=== PATIENT | female | born 1960 | race Caucasian/White ===

== ENCOUNTER → 2016-12-26 | Outpatient (CLI) | payer OTHER, BC ==
[~2016-12-26] MED LIST: ASPI81TA28 PO; CHOL1000 PO; CYAN10005 PO; KETO10TA PO; OXYC-57 PO
--- NOTE | 2016-12-26 09:36 | DIAGNOSTIC IMAGING REPORT ---
LEFT UPPER EXT JOINT WITHOUT CLINICAL HISTORY: SHOULDER PAIN pain TECHNIQUE: Multiaxial MRI acquisition COMPARISON STUDY: None FINDINGS: Small joint effusion. Small amount of fluid within the subacromial and subdeltoid regions. Generalized supraspinatus tendinitis with evidence for a small focal full-thickness tear at the anterior leading-edge of the tendon. No evidence for musculotendinous retraction. The infraspinatus and subscapularis tendons are unremarkable. Biceps tendon is intact within the bicipital groove. Moderate degenerative substance change of the glenoid labrum with no well-defined acute labral tear. IMPRESSION: 1. Considerable supraspinatus tendinitis with evidence for a small focal full-thickness tear at its anterior edge. 2. No evidence for musculotendinous retraction. 3. Small joint effusion. 4. Moderate degenerative changes of the articular services the glenohumeral joint. 5. Degenerative substance change of the glenoid labrum with no evidence for a superimposed acute labral tear. The above report was generated using voice recognition software. It may contain grammatical, syntax or spelling errors. Electronically signed by: Lc Colbert M.D. 12/26/2016 9:35 AM Dictated Date/Time: 12/26/2016 9:27 AM
== END | disposition home or self-care (01) ==
LOC: C.MRIBC 08:45
PROVIDERS: ATTEND Orthopaedic Surgery
DX: M25.512 Pain in left shoulder (principal); M75.52 Bursitis of left shoulder; M25.412 Effusion, left shoulder

== ENCOUNTER → 2017-01-30 | Outpatient (CLI) | payer OTHER, BC ==
[2017-01-30 13:17] LABS: BASO % 0.3 %; BASO ABS # 0.02 K/uL (0-0.2); COMPLETE YES; EOS % 4.4 %; HEMATOCRIT 42.2 % (37-47); IG% 0.1 %; LYMPH % 28.1 %; LYMPH ABS # 2.04 K/uL (1.2-3.4); MEAN CELL VOLUME 91.9 fL (80-100); MEAN CORPUSCULAR HGB CONC 31.5 g/dl (32-36); MEAN PLATELET VOLUME 11.4 fL (7.4-10.4); MONO % 10.1 %; PLATELET COUNT 284 K/uL (130-400); RED BLOOD COUNT 4.59 M/uL (4.2-5.4); WHITE BLOOD COUNT 7.25 K/uL (4.8-10.8)
[2017-01-30 14:03] LABS: BLOOD UREA NITROGEN 18 mg/dl (7-18); CREATININE 0.77 mg/dl (0.60-1.20); GLUCOSE 84 mg/dl (70-99)
[2017-01-30 14:04] LABS: BUN/CREATININE RATIO 22.8 (10-20); CALCIUM 8.7 mg/dl (8.5-10.1); CARBON DIOXIDE 31 mmol/L (21-32); CHLORIDE 106 mmol/L (98-107); POTASSIUM 3.9 mmol/L (3.5-5.1); SODIUM 140 mmol/L (136-145)
== END | disposition home or self-care (01) ==
LOC: C.LAB 12:01
PROVIDERS: ATTEND Orthopaedic Surgery
DX: Z01.810 Encounter for preprocedural cardiovascular examination (principal); Z01.812 Encounter for preprocedural laboratory examination; M25.512 Pain in left shoulder; R00.1 Bradycardia, unspecified

== ENCOUNTER → 2017-02-19 | Day surgery (SDC) | payer OTHER, BC ==
[2017-01-27 13:51] VITALS: Ht 172.7 cm; Wt 75.0 kg
[~2017-02-19] VITALS: Ht 172.7 cm; Wt 75.0 kg
[~2017-02-19] MED LIST changes: +ATROPINE SULFATE 0.1 MG/ML 5ML SYR IV PRN; +BUPIVACAINE/EPINEPHRINE 0.25% 1:200,000 30 ML VIAL ONE; +CEFAZOLIN 2000 MG/60 ML D5W IV SCH; +DEXAMETHASONE SOD INJ 4 MG/ML VIAL ONE; +EpHEDrine SULFATE INJ 50 MG/ML AMP IV PRN; +EpINEphrine INJ 1MG/ML AMP 1 MG/ML AMP ONE; +FENTANYL CITRATE INJ 50 MCG/1 ML 2 ML VIAL ONE; +HYDROmorphone INJ 1 MG/ML SYR IV PRN; +LACTATED RINGER'S 1000ML 1,000 ML IV SCH; +LIDOCAINE HCL 1% MPF 2 ML VIAL ONE; +LIDOCAINE HCL 2% 2 ML VIAL (20MG/ML) ONE; +MIDAZOLAM HCL 1 MG/ML 2ML VIAL ONE; +ONDANSETRON INJ 2 MG/ML 2 ML VIAL IV PRN; +ONDANSETRON INJ 2 MG/ML 2 ML VIAL ONE; +OXYCODONE/ACETAMINOPHEN 5-325 TAB PO PRN; +PROMETHAZINE HCL INJ 12.5 MG in SODIUM CHLORIDE 0.9% 50ML 50 ML IV PRN; +PROPOFOL IV EMULSION 10 MG/ML 20 ML VIAL IV ONE; +ROPIVACAINE 0.5% 5 MG/ML 30 ML VIAL ONE; +SODIUM CHLORIDE 0.9% 1000ML 1,000 ML IV SCH
--- NOTE | 2017-02-19 09:55 | History & Physical Bridge Note ---
H&P Re-Evaluation Bridge Note: I have examined the patient, reviewed the History & Physical and in the interval since the performance of the History & Physical I have noted the following changes of clinical significance: No changes noted
--- NOTE | 2017-02-19 13:11 | Discharge Instructions-SurgCtr ---
Discharge Instructions Date of Service Feb 19, 2017. Visit Reason for Visit: Left Shoulder Full Thickness Rotator Cuff Tear Discharge Discharge Diagnosis / Problem: SAME ABOVE Discharge Goals Goal(s): Decrease discomfort, Improve function Activity Recommendations Activity Limitations: as noted below Lifting Limitations: until after follow-up appointment Exercise/Sports Limitations: until after follow-up appointment Shower/Bathe: tomorrow Anesthesia . Post Anesthesia Instructions: If you have had General Anesthesia or IV Sedation: * Do not drive today. * Resume driving when surgeon permits. * Do not make important decisions or sign legal documents today. * Call surgeon for: 1. Temperature elevations greater than 101 degrees F. 2. Uncontrollable pain. 3. Excessive bleeding. 4. Persistent nausea and vomiting. 5. Medication intolerance (nausea, vomiting or rash). * For nausea and vomiting use only clear liquids such as: tea, soda, bouillon until nausea subsides, then gradually increase diet as tolerated. * If you have any concerns or questions, call your surgeon's office. If physician is unavailable and it is an emergency, call 911 or go to the nearest emergency room. . Instructions / Follow-Up Instructions / Follow-Up MEDICATIONS: * Resume previous medications unless instructed otherwise by your surgeon. * Always take pain medication on a full stomach or with food to avoid upset stomach. * Do not drink alcohol or drive while taking narcotics. * Ibuprofen or Tylenol may be taken if narcotic not needed. SPECIAL CARE INSTRUCTIONS: __ None _X_ Keep extremity elevated and iced x 48 hours; apply ice 20-30 minutes 8-10 times/day. May remove at night. _X_ Sling (MAY REMOVE AFTER 48 HOURS ONLY TO SHOWER AND FOR THERAPY) _X_24 hrs/day __ Remove at night __ Shoulder Immobilizer __ 24 hrs/day __ Remove at night _X_ Dressing __ Maintain until seen in office, may shower with plastic over site _X_ Remove dressings in 24-48 hours and then may shower _X_ Cover incisions with band-aids after showering __ Do not remove steri-strips Call physician if chills or temperature rises above 102 degrees or pain unrelieved by prescribed pain medications at . . Diet Recommendations Home Diet: no limitations Fluid Restriction: None Procedures Procedures Performed: Left Shoulder Arthroscopy, Small Rotator Cuff Repair, Extensive Debridement, Acromioplasty Pending Studies Studies pending at discharge: no Work Instructions Return To Work: after follow-up Lifting Limitations: NO LIFTING WITH LEFT ARM Medical Emergencies . Who to Call and When: Medical Emergencies: If at any time you feel your situation is an emergency, please call 911 immediately. . Non-Emergent Contact Non-Emergency issues call your: Primary Care Provider Call Non-Emergent contact if: you have a fever, temperature is above 101.5 . . "Provider Documentation" section prepared by Yaya Olson. .
--- NOTE | 2017-02-19 13:16 | [facility] Post Operative Brief Note ---
Immediate Operative Summary Operative Date Feb 19, 2017. Pre-Operative Diagnosis Left Shoulder Full Thickness Rotator Cuff Repair Post-Operative Diagnosis Same Procedure(s) Performed Left Shoulder Arthroscopy, Small Rotator Cuff Repair, Extensive Debridement, Acromioplasty Surgeon Dr. Marianne Whaley Furnace Repair Mechanic Surgeon(s) Radha Olson PA-C Estimated Blood Loss 5 cc Findings as above Specimens None Complication(s) None Disposition Recovery Room / PACU
[2017-02-19] MEDS: FENTANYL CITRATE INJ 50 MCG/1 ML 2 ML VIAL IV PRN ×3 (13:17→13:29)
--- NOTE | 2017-02-19 13:29 | OPERATIVE REPORT ---
DATE OF OPERATION: 02/19/2017 PREOPERATIVE DIAGNOSIS: Severe external impingement with bursal sided rotator cuff tear. 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 PROCEDURE: Left shoulder diagnostic arthroscopy with extensive debridement including chondroplasty, acromioplasty and small rotator cuff repair. SURGEON: Dr. Heraclio Whaley. REHANGER: Johny Olson PA-C, whose assistance was necessary for positioning the arm and helping with instrumentation. ANESTHESIA: General with left interscalene nerve block. COMPLICATIONS: None. CONDITION: Stable to PACU. INDICATIONS: Heather is a pleasant 56-year-old female who has been dealing with a 6-month history of increasing left shoulder pain. It hurts her joint repetitive activity at work. MRI and clinical examination showed severe external impingement bursal sided rotator cuff tear. She elected to undergo arthroscopy. OPERATION AND FINDINGS: On 02/19/2017, she arrived at [facility] for the above procedure. She was seen in the preoperative holding area and the operative extremity was identified and signed. She was given a preoperative antibiotic and a left interscalene nerve block. She was taken back to the operating room, laid on the table in supine position and put under general anesthesia. She was then put into the beachchair position. The left shoulder was prepped and draped in sterile fashion. Time-out was done and the patient and operative extremity was properly identified. A scope was introduced in the posterior portal. Diagnostic arthroscopy showed no cartilage damage to the glenoid, but grade 4 chondral changes throughout the humeral head. There were 2 very large areas of complete cartilage loss. The cartilage was flaking off of these areas and very unstable. There was some tearing of the far anterior supraspinatus. The remainder of the supraspinatus, infraspinatus and teres minor was all checked and intact. The biceps tendon did not have any pathology. An anterior portal was made. A shaver was used to start an extensive debridement of some of the intra-articular structures. Significant time was spent removing all unstable cartilage fragments through both an anterior and posterior portal. Multiple pictures were taken of the large lesions of cartilage loss. The anterior and posterior labrum were debrided back to stable margins. The scope was then put into the subacromial space. A lateral portal was made. A shaver was used to do a debridement including complete subacromial and subdeltoid bursectomy. An ablator was used to tease the coracoacromial ligament off the undersurface of the acromion and a 5-0 connor was used to complete an acromioplasty of a very large Bigliani type 3 acromion. A shaver was used to remove any excess debris and attention was turned to the rotator cuff. There was a small far anterior rotator cuff tear. An additional anterolateral portal was made and Rafaela was placed. The tuberosity was then prepared with a ring curette and a microfracture. The rotator cuff was then fixed with an Arthrex modified SpeedBridge configuration using a single 4.75 mm BioComposite SwiveLock suture anchor on the medial row with 2 fiber tapes passed through the tendon separately at the anticipator articular margin. The 2 FiberTapes were then brought down to a single lateral row SwiveLock suture anchor. This gave a nice knotless SpeedBridge repair. Multiple pictures were taken. The scope was placed back into the glenohumeral joint and the articular margin of the rotator cuff had been restored. The biceps tendon was pulled into the joint and no pathology was identified. Arthroscopic instruments removed from the shoulder. Portal sites were closed with 3-0 nylon. She was placed in a soft dressing and a left arm sling. She was then extubated, transferred to a litter and taken to the postanesthesia care unit in stable condition. She tolerated the procedure well. I attest to the content of the Intraoperative Record and any orders documented therein. Any exception s are noted below.
[2017-02-19 14:25] VITALS: BP 119/76; PULSE 62; O2SAT 94
--- NOTE | 2017-02-19 14:30 | Anesthesia Progress Nt - [facility] ---
Anesthesia Post Op Note Date & Time Feb 19, 2017 at 14:30 Vital Signs Pain Intensity: 0 Vital Signs Past 12 Hours Date Time Temp Pulse Resp B/P (MAP) Pulse Ox O2 Delivery O2 Flow Rate FiO2 02/19/17 14:25 62 16 119/76 (90) 94 Room Air 02/19/17 13:51 36.9 72 16 127/74 (91) 97 Room Air 02/19/17 13:39 66 22 95 02/19/17 13:39 66 22 02/19/17 13:37 36.5 75 12 122/76 96 Room Air 02/19/17 13:36 122/76 02/19/17 13:34 67 15 02/19/17 13:34 66 15 94 02/19/17 13:33 64 18 92 02/19/17 13:33 66 18 02/19/17 13:31 126/72 02/19/17 13:28 72 15 02/19/17 13:28 71 15 99 02/19/17 13:26 127/72 02/19/17 13:23 68 17 100 02/19/17 13:23 68 17 02/19/17 13:21 124/74 02/19/17 13:18 68 15 02/19/17 13:18 69 15 100 02/19/17 13:16 132/77 02/19/17 13:13 74 13 02/19/17 13:13 74 13 100 02/19/17 13:11 137/100 02/19/17 13:09 137/94 02/19/17 13:08 36.7 71 16 137/94 96 Diffusion Mask 5 02/19/17 11:55 0 02/19/17 11:51 107/68 02/19/17 11:50 59 32 99 02/19/17 11:50 60 02/19/17 11:46 108/67 02/19/17 11:45 55 13 97 02/19/17 11:45 56 02/19/17 11:41 128/76 02/19/17 11:40 56 02/19/17 11:40 55 12 100 02/19/17 11:36 129/70 02/19/17 11:35 53 0 96 02/19/17 11:35 53 02/19/17 09:15 36.6 63 16 116/77 (90) 95 Room Air Notes Mental Status: alert / awake / arousable, participated in evaluation Pt Amnestic to Procedure: Yes Nausea / Vomiting: adequately controlled Pain: adequately controlled Airway Patency, RR, SpO2: stable & adequate BP & HR: stable & adequate Hydration State: stable & adequate Anesthetic Complications: no major complications apparent
== END | disposition home or self-care (01) ==
LOC: X.SURG 09:08
PROVIDERS: ATTEND Orthopaedic Surgery
DX: M75.102 Unspecified rotator cuff tear or rupture of left shoulder, not specified as traumatic (principal); M25.812 Other specified joint disorders, left shoulder; M19.90 Unspecified osteoarthritis, unspecified site; J45.909 Unspecified asthma, uncomplicated; Z90.711 Acquired absence of uterus with remaining cervical stump; Z98.890 Other specified postprocedural states; Z87.891 Personal history of nicotine dependence; Z68.25 Body mass index [BMI] 25.0-25.9, adult

== ENCOUNTER → 2018-01-07 | Outpatient (CLI) | payer BC ==
[~2018-01-07] MED LIST changes: -ATROPINE SULFATE 0.1 MG/ML 5ML SYR IV PRN; -BUPIVACAINE/EPINEPHRINE 0.25% 1:200,000 30 ML VIAL ONE; -CEFAZOLIN 2000 MG/60 ML D5W IV SCH; -DEXAMETHASONE SOD INJ 4 MG/ML VIAL ONE; -EpHEDrine SULFATE INJ 50 MG/ML AMP IV PRN; -EpINEphrine INJ 1MG/ML AMP 1 MG/ML AMP ONE; -FENTANYL CITRATE INJ 50 MCG/1 ML 2 ML VIAL ONE; -HYDROmorphone INJ 1 MG/ML SYR IV PRN; -KETO10TA PO; -LACTATED RINGER'S 1000ML 1,000 ML IV SCH; -LIDOCAINE HCL 1% MPF 2 ML VIAL ONE; -LIDOCAINE HCL 2% 2 ML VIAL (20MG/ML) ONE; -MIDAZOLAM HCL 1 MG/ML 2ML VIAL ONE; -ONDANSETRON INJ 2 MG/ML 2 ML VIAL IV PRN; -ONDANSETRON INJ 2 MG/ML 2 ML VIAL ONE; -OXYC-57 PO; -OXYCODONE/ACETAMINOPHEN 5-325 TAB PO PRN; -PROMETHAZINE HCL INJ 12.5 MG in SODIUM CHLORIDE 0.9% 50ML 50 ML IV PRN; -PROPOFOL IV EMULSION 10 MG/ML 20 ML VIAL IV ONE; -ROPIVACAINE 0.5% 5 MG/ML 30 ML VIAL ONE; -SODIUM CHLORIDE 0.9% 1000ML 1,000 ML IV SCH
[2018-01-07 16:35] LABS: BASO % 0.5 %; BASO ABS # 0.03 K/uL (0-0.2); EOS % 2.9 %; EOS ABS # 0.16 K/uL (0-0.5); HEMOGLOBIN 13.2 g/dL (12.0-16.0); IG# 0.01 K/uL (0.00-0.02); LYMPH % 40.8 %; LYMPH ABS # 2.23 K/uL (1.2-3.4); MEAN CELL VOLUME 90.7 fL (80-100); MEAN CORPUSCULAR HEMOGLOBIN 29.2 pg (25-34); MEAN CORPUSCULAR HGB CONC 32.2 g/dl (32-36); MEAN PLATELET VOLUME 11.1 fL (7.4-10.4); MONO % 7.5 %; MONO ABS # 0.41 K/uL (0.11-0.59); NEUT % 48.1 %; NEUT ABS # 2.62 K/uL (1.4-6.5); PLATELET COUNT 334 K/uL (130-400); RED CELL DISTRIBUTION WIDTH CV 14.3 % (11.5-14.5); RED CELL DISTRIBUTION WIDTH SD 47.1 fL (36.4-46.3); WHITE BLOOD COUNT 5.46 K/uL (4.8-10.8)
[2018-01-07 16:50] LABS: ALT/SGPT 20 U/L (12-78); AST/SGOT 16 U/L (15-37); BLOOD UREA NITROGEN 12 mg/dl (7-18); CALCIUM 8.9 mg/dl (8.5-10.1); CARBON DIOXIDE 32 mmol/L (21-32); CREATININE 0.78 mg/dl (0.60-1.20); GLUCOSE 78 mg/dl (70-99); POTASSIUM 4.5 mmol/L (3.5-5.1); SODIUM 138 mmol/L (136-145)
== END | disposition home or self-care (01) ==
LOC: C.LAB1850 15:08
DX: R53.83 Other fatigue (principal)

== ENCOUNTER 2025-04-24 09:21 | Observation (INO) ==
--- NOTE | 2025-03-17 12:36 | PAT Medication Instructions ---
Medication Instructions Date of Service March 17, 2025 Home Medications calcium 250 mg tablet 25 mg PO QPM cholecalciferol (vitamin D3) 50 mcg (2,000 unit) tablet (Vitamin D3) 50 mcg PO DAILY clonazepam 0.5 mg tablet 0.5 mg PO TID PRN Anxiety amlodipine 5 mg tablet 5 mg PO QAM carvedilol 12.5 mg tablet 12.5 mg PO BID fluoxetine 40 mg capsule 80 mg PO QAM ibuprofen 200 mg tablet 600 mg PO BID PRN Pain methylphenidate HCl 20 mg tablet 10 mg PO BID mirtazapine 30 mg tablet 30 mg PO HS MEDICATION INSTRUCTIONS: ASK your surgeon for instructions ibuprofen 200 mg tablet 600 mg PO BID PRN Pain DO NOT take the morning of surgery cholecalciferol (vitamin D3) 50 mcg (2,000 unit) tablet (Vitamin D3) 50 mcg PO DAILY methylphenidate HCl 20 mg tablet 10 mg PO BID Take morning of surgery With a small sip of water, OTHERWISE NOTHING TO EAT OR DRINK AFTER MIDNIGHT: carvedilol 12.5 mg tablet 12.5 mg PO BID clonazepam 0.5 mg tablet 0.5 mg PO TID PRN Anxiety amlodipine 5 mg tablet 5 mg PO QAM fluoxetine 40 mg capsule 80 mg PO QAM Take evening before surgery mirtazapine 30 mg tablet 30 mg PO HS calcium 250 mg tablet 25 mg PO QPM carvedilol 12.5 mg tablet 12.5 mg PO BID clonazepam 0.5 mg tablet 0.5 mg PO TID PRN Anxiety methylphenidate HCl 20 mg tablet 10 mg PO BID Other Notes If you have any questions please call us at [phone] or [phone] or [phone] or [phone]
--- NOTE | 2025-03-28 10:58 | Anesthesiology Consultation ---
Date of Service March 28, 2025 Assessment & Plan (1) Encounter for pre-operative examination: This is the Anesthesiology Consultation note for Robotic Assisted Right Total Knee Arthroplasty scheduled 04/24/[address] Whaley - Infectious disease screening: Per assessment on 03/28/25- No known recent infectious disease contacts or current infectious disease symptoms. - Outpatient joint assessment: Pt currently scheduled for inpatient pathway. If surgeon requests review for outpatient joint pathway, patient is an acceptable candidate for outpatient joint program from anesthesia standpoint pending surgeon's office assessment that patient is motivated, has good support and completes Same Day Joint Program preop requirements. Chart Review Chart Review: Acceptable Risk for Surgery and Patient seen in Pre Admission Testing Teaching & Discussion Pre-Anesthesia Teaching/Discussion Notes: Instructed NPO after midnight before surgery,except medications with 15 cc of water. Medication instructions provided according to the PAT guidelines. History Surgery Operation Date: 04/24/25 08:00 Proposed Procedures p Robotic Assisted Right Total Knee Arthroplasty - Heraclio Whaley, DO Height/Weight Height: 5 ft 7 in Weight: 81.7 kg Allergies Allergy/AdvReac Type Severity Reaction Status Date / Time No Known Allergies Allergy Verified 03/27/25 12:18 Medications Home Medications Medication Instructions Recorded Confirmed Last Taken calcium 250 mg tablet 25 mg PO QPM 09/09/21 03/27/25 12/12/21 08:00 cholecalciferol (vitamin D3) 50 50 mcg PO DAILY 09/09/21 03/27/25 12/12/21 08:00 mcg (2,000 unit) tablet (Vitamin D3) clonazepam 0.5 mg tablet 0.5 mg PO TID PRN Anxiety 12/13/21 03/27/25 12/13/21 07:00 amlodipine 5 mg tablet 5 mg PO QAM 03/17/25 03/27/25 Unknown carvedilol 12.5 mg tablet 12.5 mg PO BID 03/17/25 03/27/25 Unknown fluoxetine 40 mg capsule 80 mg PO QAM 03/17/25 03/27/25 Unknown ibuprofen 200 mg tablet 600 mg PO BID knee pain 03/17/25 03/27/25 Unknown methylphenidate HCl 20 mg tablet 10 mg PO BID 03/17/25 03/27/25 Unknown mirtazapine 30 mg tablet 30 mg PO HS 03/17/25 03/27/25 Unknown Past Medical History Medical History ADHD Anxiety Cataracts, both eyes Scheduled for Left cataracts surgery 04/05/25 at [facility] Depression Diverticular disease History of asthma Has not had inhaler/issue x years History of COVID-19 2019 Hx of Lyme disease 4+ years ago, treated Hypertension Insomnia Osteoarthritis Exercise / Class Metabolic Activity II 4-5 Yardwork/Stairs/Walk up hill (one FS: No CP, no SOB) Past Surgical History Surgical History H/O left knee surgery (2022) meniscus repair History of carpal tunnel release (2004) R/L History of colonoscopy History of hysterectomy (1999) History of lumbar puncture 4+ years ago, ? r/t workup during eventual Lyme disease diagnosis per patient History of repair of rotator cuff (2019) Left History of tooth extraction (06/2024) Hx of non-cataract eye surgery left eye Past Anesthesia History No Hx of Anesthesia Complications and No Family Hx of Anesthesia Complications History of PONV No Hx of PONV and No Hx of Motion Sickness Social History Smoking Status: Former smoker Do You Dip or Chew Tobacco: No Smoking End Date: Quit 40 years ago Hx Alcohol Use: Yes Alcohol type: beer alcohol intake frequency: 0-2 drinks per day (2 drinks/day) Hx Substance Use: No substance use type: does not use Review of Systems Patient denies chest pain, shortness of breath, dyspnea on exertion, reflux, cough, wheezing, palpitations. Physical Exam Vital Signs BP 130/69 P 56 TEMP 97.9 SP02 96%RA RESP 18 Physical Full cervical extension range of motion. Full TMJ range of motion. TMD > 3.5 finger breaths Mallampati Score I Dentition: missing side/molar, + upper front permanent bridge, possible cap Lungs: clear throughout to auscultation Cardiac: regular rate and rhythm, no murmurs noted Spine: normal Carotid arteries: negative bruit Extremities: no LE edema Lab Results Anesthesia Preop Results Results Anesthesia Widget: WBC 4.72 K/ul (4.8-10.8) L 03/28/25 Hgb 13.1 g/dl (12.0-16.0) 03/28/25 Hct 40.5 % (37.0-47.0) 03/28/25 Plt 240 K/uL (130-400) 03/28/25 Na 140 mmol/L (136-145) 03/28/25 K 4.2 mmol/L (3.5-5.1) 03/28/25 Cl 104 mmol/L (98-107) 03/28/25 CO2 34 mmol/L (21-32) H 03/28/25 BUN 12 mg/dl (6-23) 03/28/25 Creat 0.84 mg/dl (0.6-1.2) 03/28/25 Glucose Level 93 mg/dl (70-99(Fasting)) 03/28/25 PT 10.0 Seconds (9.0-12.0) 03/28/25 PTT 25 Seconds (21-31) 03/28/25 INR 0.9 (0.9-1.1) 03/28/25 Blood Type O Positive 03/28/25 Antibody Screen NEGATIVE 03/28/25 Testing Laboratory Results Urine culture 03/28/25: Pending Electrocardiogram Date: 03/28/25 SB at 55bpm. "Otherwise normal ECG" Chest X-Ray Date: 03/28/25 FINDINGS: Heart size and pulmonary vasculature are normal. No consolidation or pleural effusion. Stable hyperexpanded lungs. IMPRESSION: No acute findings.
[~2025-04-24 09:21] MED LIST changes: -ASPI81TA28 PO; +BUPIVACAINE 0.25% PF 30 ML VIAL ONE; +BUPIVACAINE 0.5 % 5 MG/1 ML PF 10ML VIAL ONE; -CHOL1000 PO; -CYAN10005 PO
[2025-04-24] MEDS ORDERED: MIDAZOLAM HCL 1 MG/ML 2ML VIAL ONE (09:40)
[2025-04-24] MEDS ORDERED: ONDANSETRON INJ 2 MG/ML 2 ML VIAL ONE (09:41)
[2025-04-24] MEDS ORDERED: PROPOFOL IV EMULSION 10 MG/ML 20 ML VIAL IV ONE ×4 (09:41→12:35)
[2025-04-24] MEDS: LR 60ML/HR IV SCH (09:52)
[2025-04-24] MEDS: LR 500ML BOLUS, THEN 15ML/HR IV SCH (09:52)
[2025-04-24] MEDS: ACETAMINOPHEN 500 MG TAB PO SCH ×2 (09:53→16:28)
[2025-04-24] MEDS: FAMOTIDINE 20 MG TAB PO SCH (09:53)
[2025-04-24] MEDS: GABAPENTIN 300 MG CAP PO SCH (09:53)
[2025-04-24] MEDS: dexAMETHasone**PF** 10 MG/ML VIAL IV SCH (09:54)
--- NOTE | 2025-04-24 10:20 | History & Physical Bridge Note ---
Date of Service April 24, 2025 History & Physical Bridge Note I have examined the patient, reviewed the History & Physical and in the interval since the performance of the History & Physical I have noted the following changes of clinical significance: no changes noted
[2025-04-24] MEDS ORDERED: ATROPINE SULFATE 0.1 MG/ML 10ML SYR IV PRN (10:41)
[2025-04-24] MEDS ORDERED: ONDANSETRON INJ 2 MG/ML 2 ML VIAL IV PRN ×2 (10:41→15:04)
[2025-04-24] MEDS ORDERED: PROMETHAZINE HCL 6.25 MG in SODIUM CHLORIDE 0.9% 50 ML IV PRN (10:41)
[2025-04-24] MEDS: TRANEXAMIC ACID 1,000 MG **IV Pre-op IV SCH (11:06)
[2025-04-24] MEDS: ROPIV 0.5% 246mg, Ketorolac 30mg, EPINEPHrine 0.5mg in NSS INFIL SCH (11:49)
[2025-04-24] MEDS: ORTHO JOINT ANESTHETIC ONE (11:49)
--- NOTE | 2025-04-24 12:35 | Operative Report ---
[facility] Post Operative Report Pre & Post Diagnosis Operation Date: 04/24/25 11:00 Pre-Op Diagnosis: Right Knee Osteoarthritis Post-Op Diagnosis: Right Knee Osteoarthritis I identified the patient and participated in the time-out.: Yes Procedure Operation Date: 04/24/25 11:00 Actual Procedures p Robotic Assisted Right Total Knee Arthroplasty(Right) - Heraclio Whaley DO Surgeon Heraclio Whaley DO [employer] Meek Santana PA-C Estimated Blood Loss 30 Findings Consistent with Post-Op Diagnosis Specimens Right femoral and tibial bone Description of Procedure Implants used: I used a Nabil Persona total knee arthroplasty system with a size 9 PS narrow femur, E tibia, and a size 10 CPS polyethylene bearing. All components were press-fit in place. [facility] for the above procedure. She was seen in the preoperative holding area and the operative extremity was identified and signed. She was given a preoperative antibiotic, TXA, a spinal anesthetic and an adductor nerve block. She was taken back to the operating room and laid on the table in supine position. She was given basic sedation. The operative knee was then prepped and draped in sterile fashion. A timeout was done, and the patient and the operative extremity was properly identified. A midline incision was made directly over the patella. Dissection was taken down to the extensor mechanism. A medial parapatellar arthrotomy was used. The medial retinaculum was released and the fat pad was mostly excised. The knee was flexed and the ACL, PCL, and meniscus were removed. The alignment of the knee replacement was assisted with a [employer] robotic knee. The femoral array was pinned in the distal femur and the tibial array was pinned using a percutaneous technique in the upper shaft of the tibia. The robot was appropriately calibrated and the structure of the knee was mapped out. The components were then manipulated on the screen to account for any malalignment and to assist in gap balancing. Once I was happy with the placement of the components on the screen, a distal femoral cutting guide was brought in place. The distal femur was then resected. The femur measured to be a size 9. A 4-in-1 cutting block was then put into place by the robot and 2 peg holes were drilled. The 4-in-1 cutting block was then impacted into place and anterior, posterior, and chamfer cuts were made. The cutting block was then brought down to the tibia and pinned into place. The proximal tibia was then resected. The posterior aspect of the knee was then opened up and any additional meniscus fragments and osteophytes were removed. The tibia measured to be a size E. The tibial plate was then placed in the appropriate rotation and the tibia was drilled and punched. Trial components were then placed. A size 10 CPS polyethylene insert was then trialed. The knee was brought through a full range of motion and felt to be stable. Trial components were then removed. The surrounding soft tissues were injected with 100 cc of an orthopedic pain control cocktail. All components were then press-fit into place. The final polyethylene insert was then snapped into place. The tourniquet was deflated. Hemostasis was obtained. Irrisept lavage was then done for 3 minutes. The joint was then irrigated with normal saline solution. The medial parapatellar arthrotomy was then closed with #1 Vicryl suture. The skin was closed with 2-0 Vicryl, 3-0V lock suture, and Sara Zipline. A soft compressive dressing was placed. She was then transferred to a hospital bed and taken to the postanesthesia care unit in stable condition. She tolerated the procedure well. Meek Santana PA-C, was present for the entire procedure. He was critical for patient positioning, prepping, draping, retraction exposure, wound closure and application of sterile dressing. I attest to the content of the Intraoperative Record and any orders documented therein. Any exceptions are noted below.
--- NOTE | 2025-04-24 13:41 | XRay Report ---
XR knee RT 1 or 2V routine CLINICAL HISTORY: Surgical Post Op COMPARISON: MRI dated 11/18/2024 FINDINGS: There are postsurgical changes of a total right knee arthroplasty. The femoral tibial comp onents appear well seated. There is gas within the soft tissues consistent with recent surgery. Small lucencies within the distal femur and proximal tibia are felt to be postsurgical. IMPRESSION: Postsurgical changes of a total right knee arthroplasty. ACT 112: Negative or not required by law. Electronically signed by: Jaydon Rock M.D. 04/24/2025 1:39 PM
--- NOTE | 2025-04-24 13:52 | Anesthesiology Progress Note ---
Date of Service April 24, 2025 Anesthesia Post Procedure Vital Signs Vital Signs: Temp Pulse Pulse Resp BP Pulse Ox O2 Del Method 04/24/25 13:45 51 L 18 117/70 97 Nasal Cannula 04/24/25 13:30 36.6 C 52 L 18 127/69 98 Nasal Cannula 04/24/25 13:20 50 L 18 120/73 98 Nasal Cannula 04/24/25 13:10 51 L 17 120/65 99 Oxymask 04/24/25 13:04 36.3 C L 53 L 18 121/64 98 Oxymask 04/24/25 09:34 36.5 C 62 20 158/83 H 97 Room Air O2 Flow Rate 04/24/25 13:45 2 04/24/25 13:30 2 04/24/25 13:20 2 04/24/25 13:10 6 04/24/25 13:04 6 04/24/25 09:34 Transfer of Care Handoff Completed per policy Notes Mental Status: alert / awake / arousable and participated in evaluation Patient Amnestic to Procedure: Yes Nausea / Vomiting: adequately controlled Pain: adequately controlled Airway Patency, RR, SpO2: stable & adequate BP & HR: stable & adequate Hydration State: stable & adequate Neuraxial Anesthesia: was administered and sensory block is resolving Anesthetic Complications: no major complications apparent and Pt Satisfied with anesthetic care
[2025-04-24] MEDS ORDERED: MAGNESIUM HYDROXIDE SUSP 30 ML UDC PO PRN (15:04)
[2025-04-24] MEDS ORDERED: HYDROmorphone INJ 0.5 MG/0.5 ML SYR IV PRN (15:04)
[2025-04-24] MEDS ORDERED: clonazePAM 0.5 MG TAB PO PRN (15:04)
[2025-04-24] MEDS ORDERED: NALOXONE HCL 0.4 MG/1 ML VIAL/CARP IV PRN (15:04)
[2025-04-24] MEDS ORDERED: diphenhydrAMINE Capsule 25 MG CAP PO PRN (15:04)
[2025-04-24] MEDS ORDERED: METOCLOPRAMIDE HCL INJ 5 MG/ML 2 ML VIAL IV PRN (15:04)
[2025-04-24] MEDS: SODIUM CHLORIDE 0.9% 1,000 ML IV SCH (16:25)
[2025-04-24] MEDS: METHYLPHENIDATE HCL 10 MG TABLET PO SCH (16:27)
[2025-04-24] MEDS: KETOROLAC TROMETHAMINE 15 MG/ML VIAL IV SCH (16:27)
[2025-04-24] MEDS: MIRTAZAPINE TAB 15 MG TAB PO SCH (20:39)
[2025-04-24] MEDS: ASPIRIN 81 MG ECTAB PO SCH (20:39)
[2025-04-24] MEDS: SENNA 8.6 MG TAB PO SCH (20:40)
[2025-04-24] MEDS: DOCUSATE SODIUM 100 MG CAP PO SCH (20:40)
[2025-04-25 07:53] VITALS: RESP 16
[2025-04-25] MEDS: MULTIVITAMIN TAB PO SCH (07:57)
--- NOTE | 2025-04-25 08:59 | Orthopedic Progress Note ---
Date of Service April 25, 2025 Assessment & Plan (1) Status post total right knee replacement: * Continue Current Treatment * Disposition: home * Daily treatment: Physical Therapy/ Occupational Therapy per protocol * Weight bearing status: WBAT * Continue to monitor for ABLA * Pain control * DVT prophylaxis, ASA * Office/hospital f/u 2 weeks for progress check and staple/suture removal * Plan for discharge today pending PT/OT clearance Subjective .Active Problems: S/p right TKA POD 1 64 y/o female s/p right TKA. Doing well overall, pain managed and improved function. Denies fever/chills, chest pain/SOB, nausea/vomiting. Otherwise no complaints. Review of Systems All systems reviewed & are unremarkable except as noted in HPI & below. Physical Exam . * General: Alert and oriented, no acute distress * Constitutional: well-developed, well-nourished. * Respiratory: Normal respiratory effort, no distress * Gastrointestinal: No tenderness to palpation, no rigidity or guarding. * Skin: No rash or lesion. * Neurologic: Grossly normal * Musculoskeletal: right knee surgical dressing CDI, not removed for exam. Otherwise no obvious deformity or overlying skin changes RLE. Diffuse TTP distal thigh and knee region. Otherwise no specific tenderness of proximal thigh, lower leg, foot/ankle. AROM knee flexion 80 degrees. AROM foot/ankle intact. Sensation intact plantar/dorsal foot. Brisk capillary refill. Results & Data Results & Data Laboratory Results . Diagnostic Findings . Knee X-Ray 04/24/25 13:07 XR knee RT 1 or 2V routine CLINICAL HISTORY: Surgical Post Op COMPARISON: MRI dated 11/18/2024 FINDINGS: There are postsurgical changes of a total right knee arthroplasty. The femoral tibial components appear well seated. There is gas within the soft tissues consistent with recent surgery. Small lucencies within the distal femur and proximal tibia are felt to be postsurgical. IMPRESSION: Postsurgical changes of a total right knee arthroplasty. ACT 112: Negative or not required by law. Electronically signed by: Jaydon Rock M.D. 04/24/2025 1:39 PM PG Care Time/CCT Total # of Minutes Spent Total Time Spent with Patient: Total time spent is greater than 50% in coordination of care (as documented) at patient's floor/unit and/or counseling patient: Coding Level of Care Code 19650 Post Operative Follow-Up Diagnoses Status post total right knee replacement Z96.653
[2025-04-25 11:17] VITALS: BP 140/80; PULSE 61; TEMP 98.8; O2SAT 92
== END 2025-04-25 12:34 | disposition home or self-care (01) ==
LOC: 3E 09:21 → ASU 09:21